=== PATIENT | female | born 1960 | race Caucasian/White ===

== ENCOUNTER 2021-01-15 08:39 | Outpatient (CLI) | payer OTHER, SELFPAY ==
--- NOTE | ~2021-01-15 | US_ITS ---
EXAMINATION: US venous doppler LE RT DATE: 01/15/2021 09:07 INDICATION: Right lower limb swelling. TECHNIQUE: Grayscale ultrasound images without and with compression and Doppler ultrasound images of the right lower extremity veins were obtained. COMPARISON: Ultrasound 11/25/2018 FINDINGS: The visualized portions of right common femoral vein, profunda (deep) femoral vein, femoral vein, pop liteal vein, peroneal veins, posterior tibial veins, and greater saphenous vein outflow are patent. A patent varicose vein is noted in the patient's area of concern. IMPRESSION: 1. No deep venous thrombosis. 2. Patent varicose vein in the patient's area of concern. Reviewed, dictated and finalized at location A.
== END 2021-01-15 08:40 ==
PROVIDERS: PCP Physician Assistant; Visit Provider Physician Assistant
DX: M79.89 Other specified soft tissue disorders (principal); R23.8 Other skin changes
CPT/HCPCS: 93971

== ENCOUNTER 2021-11-03 17:37 | Emergency (ER) | payer OTHER, SELFPAY ==
[2021-11-03 17:49] VITALS: BP 150/76; PULSE 94; RESP 18; TEMP 37.7; O2SAT 98
--- NOTE | 2021-11-03 17:53 | ED.ALLEREA ---
HPI - Allergic Reaction General Chief complaint: Allergic Reaction Stated complaint: poss allergice reaction Time Seen by Provider: 11/03/21 17:50 Source: patient, RN notes reviewed and old records reviewed History of Present Illness HPI narrative: 61 year old female who presents to [facility] with complaint of having possible allergic reaction to cashews. She states that he ate a handful of cashews last night when she was cleaning up the bingo hart. She reports that she immediately had a feeling of sinus drainage in the past of her throat, she reports that she did not have any difficulty swallowing or any respiratory distress. At about 0100 she vomited and she started getting this itching feelings in her hands and feet.She reports that she has been taking Benadryl with no relief in the itching, continues to not have any shortness of breath or any difficulty with swallowing with no rash noted. MD complaint: allergic reaction and other (hands and feet itch no rash) Onset (ago): hour(s) (about 10pm last night) Exposure: unknown Known history of allergy to: never allergy to anything before Symptoms: itching Severity: moderate Treatment prior to arrival: benadryl Previous Allergic Reaction History: none Related Data Home Medications Medication Instructions Recorded Confirmed irbesartan 75 mg PO DAILY 11/03/21 11/03/21 Allergies Allergy/AdvReac Type Severity Reaction Status Date / Time tree nut Allergy Itching Verified 11/03/21 17:53 Review of Systems Review of Systems: CONSTITUTIONAL: Denies fever, chills, or sweats. EYES: Denies visual changes, redness, or discharge. ENT: Denies rhinorrhea, congestion, sore throat, or otalgia. CARDIOVASCULAR: Denies chest pain, palpitations, or edema. RESPIRATORY: Denies cough or dyspnea. GASTROINTESTINAL: Denies abdominal pain, nausea, vomiting, or diarrhea. GENITOURINARY: Denies dysuria or hematuria. SKIN: No rash noted acute itching noted to hands and feet MUSCULOSKELETAL: Denies back pain, joint pain, or myalgia. NEUROLOGIC: Denies headache, numbness, or weakness. PSYCHIATRIC: Denies anxiety or depression. All systems reviewed & are unremarkable except as noted in HPI and below PMFSH Past Medical History Medical History (Updated 11/03/21 @ 18:17 by Dayana Quiñones NP) Hypertension UTI (urinary tract infection) Surgical History Surgical History (Updated 11/03/21 @ 18:07 by Dayana Quiñones NP) H/O tubal ligation History of hysterectomy History of varicose vein stripping 5 weeks ago to right lower leg Family History Family History (Updated 11/03/21 @ 18:09 by Dayana Quiñones NP) Father Heart disease Hypertension Cancer Mother Hypertension Diabetes mellitus Social History Social History (Updated 11/03/21 @ 18:07 by Dayana Quiñones NP) Smoking status: Former smoker Additional smoking assessment comments: Quit 1 year ago in December Alcohol intake: current Alcohol use details: social Substance use: never Living arrangements: with family Gender identity (if verbalized by the patient): Female Comments At time of signature, agree with nursing past medical, surgical, social and family history. There is no relevant family history pertinent to the presenting complaint Exam Narrative: GENERAL: Well-appearing, well-nourished, and in no acute distress. Anxious HEAD: Normocephalic, atraumatic. EYES: PERRLA and EOMI.no swelling around eyes ENT: Nares clear, no rhinorrhea or epistaxis. Mucous membranes moist. TMs normal with good light reflex throat pink with no lesions or exudates no tonsillar swelling no Ken angina denies any difficulty with swallowing NECK: Supple. No lymph adenopathy CHEST: Clear to auscultation. No respiratory distress. No tachypnea no wheezing noted on auscultation SAO2 98% on room air HEART: Regular rate and rhythm. No murmur heard. Normal peripheral pulses. ABDOMEN: Soft, nontender, nondistended, normal active bowel so
[2021-11-03] MEDS: methylPREDNISolone ACETATE 80 MG/ML VIAL IM (18:07)
== END 2021-11-03 18:27 | disposition home or self-care (01) ==
PROVIDERS: Emergency Provider Registered Nurse
DX: L29.9 Pruritus, unspecified (principal); T78.1XXA Other adverse food reactions, not elsewhere classified, initial encounter; Z87.891 Personal history of nicotine dependence; I10 Essential (primary) hypertension
CPT/HCPCS: 96372; 99213; G0463; J1040

== ENCOUNTER 2023-01-27 15:05 | Emergency (ER) | payer OTHER, SELFPAY ==
[2023-01-27 15:16] VITALS: BP 175/70; PULSE 88; RESP 16; TEMP 37.7; O2SAT 99
--- NOTE | 2023-01-27 15:28 | ED.EXTPRO ---
HPI - Extremity Problem General Chief complaint: Extremity Problem,Nontraumatic Stated complaint: Left Leg Pain Time Seen by Provider: 01/27/23 15:18 Source: patient Mode of arrival: ambulatory Limitations: no limitations History of Present Illness HPI Narrative: [place] is a 63-year-old female patient presenting to the clinic today with complaints of left lower leg pain. States she has she has a knotted area with some redness and swelling as well as swelling into her ankle and foot on the left side. Just noticed this yesterday. Denies any known injury or insect bite to the area. No history of cellulitis. No recent travel. Does not take blood thinners. History of varicose veins. Denies any fever, chills, headache, shortness of breath, chest pain, visual changes, or dizziness Related Data Home Medications Medication Instructions Recorded Confirmed irbesartan 75 mg tablet 75 mg PO DAILY 11/03/21 01/27/23 rosuvastatin 10 mg tablet 10 mg DAILY 01/27/23 01/27/23 Allergies Allergy/AdvReac Type Severity Reaction Status Date / Time tree nut Allergy Itching Verified 01/27/23 15:22 Review of Systems Review of Systems: Pertinent positives per HPI. Patient denies any fever, chills, rash, headache, visual changes, dizziness, cough, runny nose, sore throat, shortness of breath, chest pain, palpitations, nausea, vomiting, diarrhea, constipation, abdominal pain, or any urinary issues. [facility] [place] Past Medical History Medical History (Updated 01/27/23 @ 15:35 by Kang Goodwin APRN) Hypertension UTI (urinary tract infection) Surgical History Surgical History (Updated 11/03/21 @ 18:07 by Dayana Quiñones NP) H/O tubal ligation History of hysterectomy History of varicose vein stripping 5 weeks ago to right lower leg Family History Family History (Updated 11/03/21 @ 18:09 by Dayana Quiñones NP) Father Heart disease Hypertension Cancer Mother Hypertension Diabetes mellitus Social History Social History (Updated 11/03/21 @ 18:07 by Dayana Quiñones NP) Smoking status: Former smoker Additional smoking assessment comments: Quit 1 year ago in December Alcohol intake: current Alcohol use details: social Substance use: never Living arrangements: with family Gender identity (if verbalized by the patient): Female Comments At the time of my signature, I reviewed and agree with the nursing past medical, surgical, social, and family history. There is no relevant family history pertinent to the patient complaint. Exam Narrative: General: Well-developed, well nourished, in no apparent distress Head: Normocephalic, atraumatic. Cardio: Regular rate and rhythm, s1 and s2 normal, no murmur appreciated. Resp: Clear to auscultation bilaterally, no rhonchi, rales, wheezing or rubs. Musculoskeletal: No deformity, redness,mild swelling, and tenderness to palpation over the left lower posterior lateral leg with swelling in her left ankle and foot, grossly normal range of motion, muscle strength strong and equal, peripheral pulse strong, no edema, no cyanosis, normal gait and station Course Course Emergency Course: Portions of this record may have been created with voice recognition software. Level of Care: Express Care Visit Vital Signs Vital signs: Vital Signs Temperature 37.7 C H 01/27/23 15:16 Pulse Rate 88 01/27/23 15:16 Respiratory Rate 16 01/27/23 15:16 Blood Pressure 175/70 H 01/27/23 15:16 Pulse Oximetry 99 01/27/23 15:16 Oxygen Delivery Room Air 01/27/23 15:16 Temperature 37.7 C H 01/27/23 15:16 Pulse Rate 88 01/27/23 15:16 Respiratory Rate 16 01/27/23 15:16 Blood Pressure 175/70 H 01/27/23 15:16 Pulse Oximetry 99 01/27/23 15:16 Oxygen Delivery Room Air 01/27/23 15:16 Vital signs reviewed Transfer Transfered to: [place] Transportation: Other (Private car) Transfer rationale: Knotted with tenderness to the left lower leg w
== END 2023-01-27 15:36 | disposition short-term general hospital (02) ==
PROVIDERS: Emergency Provider Nurse Practitioner Family; PCP Nurse Practitioner Family
DX: M79.662 Pain in left lower leg (principal); M79.89 Other specified soft tissue disorders; I10 Essential (primary) hypertension; Z87.891 Personal history of nicotine dependence
CPT/HCPCS: 99212; G0463

== ENCOUNTER 2023-01-27 15:47 | Emergency (ER) | payer OTHER, SELFPAY ==
--- NOTE | ~2023-01-27 | US_ITS ---
EXAMINATION: US venous doppler [facility] DATE: 01/27/2023 18:31 INDICATION: lle pain and redness . TECHNIQUE: Grayscale images without and with compression and Doppler images of the left lower extremi ty veins were obtained. COMPARISON: None FINDINGS: The left common femoral vein, profunda (deep) femoral vein, femoral vein, popliteal vein, peroneal v ein, posterior tibial veins, gastrocnemius vein, and greater saphenous vein are patent. IMPRESSION: 1. Patent left lower extremity veins. No evidence of deep venous thrombosis. Reviewed, dictated and finalized at location K.
[2023-01-27 17:33] VITALS: BP 191/82; PULSE 79; RESP 16; TEMP 36.7; O2SAT 98
--- NOTE | 2023-01-27 19:20 | ED.LOWEXIN ---
HPI - Extremity Injury (Lower) General Chief Complaint: Extremity Injury, Lower Stated Complaint: L LEG REDNESS Time Seen by Provider: 01/27/23 18:38 History of Present Illness HPI Narrative: 63-year-old female with a history of hypertension reports for evaluation of an area of redness, warmth and tenderness to the posterior aspect of her left lower extremity x1 day. Patient states she went to urgent care today for evaluation and was told to come to the ED to rule out a DVT. She reports lower extremity swelling that is unchanged from baseline. Denies fever, body aches or chills, nausea, vomiting, diarrhea, known insect bite or injury. Related Data Home Medications Medication Instructions Recorded Confirmed irbesartan 75 mg tablet 75 mg PO DAILY 11/03/21 01/27/23 rosuvastatin 10 mg tablet 10 mg DAILY 01/27/23 01/27/23 Allergies Allergy/AdvReac Type Severity Reaction Status Date / Time tree nut Allergy Itching Verified 01/27/23 15:22 Review of Systems Review of Systems: CONSTITUTIONAL: Denies fever, chills EYES: Denies visual changes, redness, or discharge. ENT: Denies rhinorrhea, congestion, sore throat, or otalgia. CARDIOVASCULAR: Denies chest pain, palpitations, or edema. RESPIRATORY: Denies cough or dyspnea. GASTROINTESTINAL: Denies abdominal pain, nausea, vomiting, or diarrhea. GENITOURINARY: Denies dysuria or hematuria. SKIN: See HPI MUSCULOSKELETAL: Denies back pain, joint pain, or myalgia. NEUROLOGIC: Denies headache, numbness, dizziness, or weakness. PSYCHIATRIC: Denies anxiety or depression. [facility] Past Medical History Medical History Hypertension UTI (urinary tract infection) Surgical History Surgical History H/O tubal ligation History of hysterectomy History of varicose vein stripping 5 weeks ago to right lower leg Family History Family History Father Heart disease Hypertension Cancer Mother Hypertension Diabetes mellitus Social History Social History Smoking status: Former smoker Additional smoking assessment comments: Quit 1 year ago in December Alcohol intake: current Alcohol use details: social Substance use: never Living arrangements: with family Gender identity (if verbalized by the patient): Female Exam Narrative: GENERAL: Well-appearing, in no acute distress. HEAD: Normocephalic NECK: Supple. CHEST: No respiratory distress. Clear to auscultation, no adventitious breath sounds. HEART: Regular rate and rhythm. No murmur heard. Normal peripheral pulses. EXTREMITIES: Normal range of motion. No edema. DP pulses 2+ bilaterally. Sensation intact throughout. Patient moving all extremities spontaneously. SKIN: 2 cm area with indistinct margins of warmth, tenderness and erythema to the posterior aspect of the lower left extremity. No skin compromise, papules or pustules, drainage or central lesions. No areas of induration or fluctuation. NEURO: No focal deficits. Alert and oriented x3. Cranial nerves II through XII grossly intact. Ambulating without difficulty. PSYCH: Normal mood and affect. Course Vital Signs Vital signs: Vital Signs Temperature 98.1 F 01/27/23 17:33 Pulse Rate 79 01/27/23 17:33 Respiratory Rate 16 01/27/23 17:33 Blood Pressure 191/82 H 01/27/23 17:33 Pulse Oximetry 98 01/27/23 17:33 Temperature 98.1 F 01/27/23 17:33 Pulse Rate 77 01/27/23 19:40 Respiratory Rate 20 01/27/23 19:40 Blood Pressure 120/78 01/27/23 19:40 Pulse Oximetry 98 01/27/23 19:40 MDM - Extremity Injury (Lower) MDM Narrative Medical decision making narrative: 63-year-old female reports for evaluation of a 2 cm area of erythema, warmth and tenderness to the posterior aspect of her left lower extr
[2023-01-27 19:23] VITALS: BP 163/84; PULSE 79; RESP 18; O2SAT 98
[2023-01-27 19:40] VITALS: BP 120/78; PULSE 77; RESP 20; O2SAT 98
== END 2023-01-27 19:40 | disposition home or self-care (01) ==
PROVIDERS: Emergency Provider Physician Assistant; PCP Nurse Practitioner Family
DX: L03.116 Cellulitis of left lower limb (principal); I10 Essential (primary) hypertension; Z87.440 Personal history of urinary (tract) infections; Z87.891 Personal history of nicotine dependence; Z90.710 Acquired absence of both cervix and uterus
CPT/HCPCS: 93971; 99284

== ENCOUNTER 2023-03-24 17:25 | Emergency (ER) | payer OTHER, SELFPAY ==
--- NOTE | 2023-03-24 17:30 | ED.SKABFB ---
HPI - Skin/Abscess/Foreign Bdy General Chief complaint: Skin/Abscess/Foreign Body Stated complaint: irritation on nose Time Seen by Provider: 03/24/23 17:45 Source: patient and RN notes reviewed Mode of arrival: ambulatory Limitations: no limitations History of Present Illness HPI narrative: 63-year-old female presents with concern for several skin issues. She reports she has had a rash on her upper arms for several days that is very itchy. Reports she has had this similar rash before without a known cause that went away on its own. She reports this rash is not going away. In a separate complaint she reports a spot on her nose that she thought may be a cold sore so she started using Abreva she reports the area originally had blisters the blisters have gone away but now it new spot on the other side of her nose is popped up. She reports it is mildly tender to touch but otherwise is not painful. She denies swollen lips, swollen tongue, trouble breathing. MD complaint: rash Related Data Home Medications Medication Instructions Recorded Confirmed irbesartan 75 mg tablet 75 mg PO DAILY 11/03/21 03/24/23 rosuvastatin 10 mg tablet 10 mg DAILY 01/27/23 03/24/23 Allergies Allergy/AdvReac Type Severity Reaction Status Date / Time tree nut Allergy Itching Verified 03/24/23 17:33 Review of Systems Review of Systems: CONSTITUTIONAL: Denies malaise, chills, sweats, or fever. EYES: Denies redness or discharge. ENT: Denies rhinorrhea, congestion, swollen lips, swollen tongue CARDIOVASCULAR: Denies chest pain, palpitations, or edema. RESPIRATORY: Denies cough or dyspnea. GASTROINTESTINAL: Denies abdominal pain, nausea, vomiting SKIN: Reports itchy rash on her bilateral upper arms. Reports two lesions on her nose MUSCULOSKELETAL: Denies joint pain or myalgia. NEUROLOGIC: Denies headache. All systems reviewed & are unremarkable except as noted in HPI and below PMFSH Past Medical History Medical History Hypertension UTI (urinary tract infection) Surgical History Surgical History H/O tubal ligation History of hysterectomy History of varicose vein stripping 5 weeks ago to right lower leg Family History Family History Father Heart disease Hypertension Cancer Mother Hypertension Diabetes mellitus Social History Social History Smoking status: Former smoker Additional smoking assessment comments: Quit 1 year ago in December Alcohol intake: current Alcohol use details: social Substance use: never Living arrangements: with family Gender identity (if verbalized by the patient): Female Comments At time of signature, agree with nursing past medical, surgical, social and family history. There is no relevant family history pertinent to the presenting complaint Exam Narrative: GENERAL: Well-appearing, well-nourished, and in no acute distress. HEAD: Normocephalic, atraumatic. EYES: PERRLA, conjunctivae clear, and EOMI. ENT: Mucous membranes moist. Oropharynx without edema, erythema or lesions. NECK: Supple. No lymphadenopathy CHEST: Clear to auscultation. No respiratory distress. HEART: Regular rate and rhythm. SKIN: Warm, dry. Erythematous papular rash noted on bilateral upper arms consistent with contact dermatitis. Raised red area on the right side of the nose without any vesicles noted, slightly smaller raised area on the left nose without vesicles NEURO: Alert and oriented x3. PSYCH: Normal mood and affect Course Course Emergency Course: Patient is aware of diagnosis, understands and agrees to treatment plan. Anticipatory guidance given. Patient agrees to follow-up as directed and is aware of reasons to seek care at the emergency department. Portions of this record
[2023-03-24 17:34] VITALS: BP 180/65; PULSE 92; RESP 14; TEMP 37; O2SAT 99
== END 2023-03-24 18:00 | disposition home or self-care (01) ==
PROVIDERS: Emergency Provider Nurse Practitioner; PCP Nurse Practitioner Family
DX: L25.9 Unspecified contact dermatitis, unspecified cause (principal); L98.9 Disorder of the skin and subcutaneous tissue, unspecified; Z87.891 Personal history of nicotine dependence; I10 Essential (primary) hypertension
CPT/HCPCS: 99213; G0463

== ENCOUNTER 2023-04-17 17:19 | Observation (INO) | payer OTHER, SELFPAY ==
[2023-04-17] VITALS (29 sets, daily range): BP systolic 135–193; BP diastolic 64–99; PULSE 74–94; RESP 14–22; TEMP 36.4; O2SAT 94–100
--- NOTE | ~2023-04-17 | CT_ITS ---
EXAMINATION: CT cervical spine wo con DATE: 04/17/2023 19:53 INDICATION: left hand decreased steeler strength eval for stenosi TECHNIQUE: Computed tomography (CT) of the cervical spine was performed without intravenous contrast. Automated exposure control and iterative reconstruction technique were employed. The dose-length pro duct was 358.51 mGy-cm. COMPARISON: None. FINDINGS: Vertebral Body Alignment: Intact. Reversed lordosis, centered at C5 Craniocervical and atlantoaxial alignment: Moderate degenerative change. Alignment intact. Osseous structures/fracture: No evidence of a lytic or blastic process in the visualized spine. No e vidence of acute fracture. Fat density lipoma or hemangioma in the clivus. Cervical soft tissues: The paraspinal soft tissues planes are maintained. 5 mm nodules in the periphe ral right upper lobe. Degenerative changes: Degenerative changes, without severe neural foraminal or central canal narrowin g. IMPRESSION: No acute fracture or traumatic malalignment in the cervical spine. Right upper lobe pulmonary nodules. Reviewed, dictated and finalized at location K.
--- NOTE | ~2023-04-17 | CT_ITS ---
EXAMINATION: CT diagnostic chest w con DATE: 04/18/2023 16:59 INDICATION: Lung masses TECHNIQUE: Transaxial computed tomographic images of the chest were obtained after the administration of 75 cc of Omnipaque 350 intravenous contrast. The dose-length product (DLP) was 158.32 mGy-cm. Ite rative reconstruction was used. COMPARISON: None FINDINGS: There is a 2.7 x 1.4 cm spiculated nodule of the right upper lobe. There is a smaller 4 mm nodule in the right lung apex (image 20). There is a 1.3 x 0.9 cm nodule of the left upper lobe. Ther e is a 6 mm nodule in the left lower lobe (image 59). There is a 1.7 x 1.3 cm nodule of the right low er lobe. There is mild right hilar lymphadenopathy. The heart size is normal. No pleural effusion or pneumothorax. There is moderate thoracic spondylosis. IMPRESSION: 1. Multiple lung nodules as described above, consistent with primary bronchogenic carcinoma with sate llite lesions or metastatic disease. CT-guided biopsy is recommended. 2. Right hilar lymphadenopathy, likely metastatic disease. Reviewed, dictated and finalized at location F. IMPRESSION: 1. Multiple lung nodules as described above, consistent with primary bronchogen ic carcinoma with satellite lesions or metastatic disease. CT-guided biopsy is recommended. 2. Right hilar lymphadenopathy, likely metastatic disease.
--- NOTE | ~2023-04-17 | XR_ITS ---
EXAMINATION: XR chest 1V portable DATE: 04/23/2023 17:53 INDICATION: Status post percutaneous lung biopsy TECHNIQUE: frontal view of the chest was obtained. COMPARISON: Chest radiograph dated 04/23/2023 at 3:54 PM FINDINGS: Again seen is the biopsied right upper lobe nodule which is concerning for primary bronchogenic carci noma. Additional more subtle small nodular opacity projecting over the left midlung zone. Mild streak y atelectasis at the right lung base. No pulmonary edema, pleural effusion or pneumothorax. Heart siz e is normal. IMPRESSION: 1. No pneumothorax or pleural effusion post percutaneous biopsy of a right upper lobe nodule which is suspicious for primary bronchogenic carcinoma. Reviewed, dictated and finalized at location A. IMPRESSION: 1. No pneumothorax or pleural effusion post percutaneous biopsy of a right uppe r lobe nodule which is suspicious for primary bronchogenic carcinoma.
--- NOTE | ~2023-04-17 | MR_ITS ---
EXAMINATION: MR brain/brain stem wo/w con DATE: 04/23/2023 13:56 INDICATION: Brain mass. TECHNIQUE: Magnetic resonance imaging (MRI) of the brain and brainstem was performed without and with 13 mL MultiHance intravenous contrast. COMPARISON: Head CT 04/17/2023 FINDINGS: There is a 15 mm rim-enhancing mass in posterior right frontal lobe. There is a 12 mm enhan cing mass in right frontoparietal region. There is vasogenic edema around these masses. There is 5 mm leftward midline shift in this area. There is no acute ischemic infarct or intracranial hemorrhage. The ventricles are normal in size. The paranasal sinuses are clear. The mastoid air cells are normal. The orbits are normal. IMPRESSION: 1. Masses in the right frontal lobe and right frontoparietal region, consistent with metastatic disea se. Reviewed, dictated and finalized at location A. IMPRESSION: 1. Masses in the right frontal lobe and right frontoparietal region, consistent with metastatic disease.
--- NOTE | ~2023-04-17 | CT_ITS ---
EXAMINATION: CT biopsy lung w/imaging DATE: 04/23/2023 14:55 INDICATION: Right lung nodule. TECHNIQUE: The procedure including the risks, benefits, and alternatives and possibility of chest tub e placement were discussed with the patient. Risks discussed included infection, hemorrhage, approxim ately 1/3 risk of pneumothorax, approximately 1/10 risk of pneumothorax severe enough to warrant ches t tube placement, and rarely . The patient understood the risks and agreed to proceed. The patie nt was placed prone. The skin overlying the right chest was prepped and draped in sterile fashion. Anesthetic was administered with 1% lidocaine subcutaneously. A 19 gauge outer needle was advanced u nder CT guidance to the lesion of interest. A 20 gauge core biopsy needle was then used to obtain 3 c ore biopsy specimens. The needle was removed and the entry site was cleaned and dressed. The mA was a djusted according to patient size. Iterative reconstruction technique was employed. The dose-length p roduct was 297.28 mGy-cm. There were no immediate complications. FINDINGS: CT images demonstrate the outer needle tip adjacent to an 18 mm nodule in right lung upper lobe. IMPRESSION: 1. CT-guided core needle biopsy of an 18 mm nodule in right lung upper lobe. Reviewed, dictated and finalized at location A.
--- NOTE | ~2023-04-17 | XR_ITS ---
EXAMINATION: XR chest 1V portable INDICATION: Right lung nodule status post percutaneous biopsy TECHNIQUE: Portable AP chest at 1554 hours COMPARISON: 1454 hours FINDINGS: A right upper lobe nodule is again seen. No pleural effusion or pneumothorax. The cardiomed iastinal silhouette is normal. IMPRESSION: 1. Unchanged right upper lobe nodule suspicious for primary bronchogenic carcinoma. No pneumothorax. Reviewed, dictated and finalized at location A. IMPRESSION: 1. Unchanged right upper lobe nodule suspicious for primary bronchogenic carcin joseph. No pneumothorax.
--- NOTE | ~2023-04-17 | XR_ITS ---
EXAMINATION: XR chest 1V portable Exam Date/Time: 04/17/2023 20:25 CDT HISTORY: cough AND RASH TO B/L ARMS X 2 WEEKS Comparison: The spine, same date. RESULT: Lines, tubes, and devices: None. Lungs and pleura: No focal consolidation. Minimal bibasilar scar/atelectasis. Nodular, peripheral op acities in the right upper lung, as seen in the prior CT C-spine. Slightly more inferiorly is at appr oximately 13 mm spiculated appearing opacity in the right upper lung. Cardiomediastinal silhouette: Stable. Other: No acute osseous or upper abdominal finding. IMPRESSION: 13 mm spiculated appearing right upper lobe nodule, with possible adjacent satellite nodules concerni ng for neoplastic disease. Consider CT of the chest with contrast for further evaluation. Reviewed, dictated and finalized at location K. IMPRESSION: 13 mm spiculated appearing right upper lobe nodule, with possible adjacent sate llite nodules concerning for neoplastic disease. Consider CT of the chest with contrast for further evaluation.
--- NOTE | ~2023-04-17 | CT_ITS ---
EXAMINATION: CT brain wo con DATE: 04/17/2023 19:53 INDICATION: left hand weakness . TECHNIQUE: Computed tomography (CT) of the head was performed without intravenous contrast. The mA wa s adjusted according to patient size. Iterative reconstruction technique was employed. The dose-lengt h product was 605.33 mGy-cm. COMPARISON: None. FINDINGS: No acute intracranial hemorrhage or extra-axial fluid collection. Two right posterior frontal lobe masses, with central hypodensity measuring up to 2.1 cm, with severe surrounding vasogenic edema and effacement of adjacent sulci. Mild eoals-fs-[id number] midline shift of 3 mm. Minimal/early right uncal herniation. No acute ischemic infarct. Unremarkable dural venous sinus attenuation. No acute osseous abnormality. The aerated spaces are clear. IMPRESSION: Two posterior right frontal lobe masses measuring up to 2.1 cm, with considerable surrounding vasogen ic edema, moderate local mass effect, and mild subfalcine herniation. These lesions most likely repre sent metastatic disease, noting that infection, demyelinating disease, and other entities could appea r similarly. Recommend MRI of the brain without and with contrast for further evaluation. Reviewed, dictated and finalized at location K. IMPRESSION: Two posterior right frontal lobe masses measuring up to 2.1 cm, with considerab le surrounding vasogenic edema, moderate local mass effect, and mild subfalcine herniation. These lesions most likely represent metastatic disease, noting marybeth t infection, demyelinating disease, and other entities could appear similarly. Recommend MRI of the brain without and with contrast for further evaluation.
--- NOTE | ~2023-04-17 | XR_ITS ---
EXAMINATION: XR chest 1V DATE: 04/23/2023 14:57 INDICATION: Right lung nodule status post percutaneous biopsy. TECHNIQUE: A single frontal view of the chest was obtained. COMPARISON: Chest CT 04/18/2023 FINDINGS: There is a nodule in right lung upper lobe. No pleural effusion or pneumothorax. The heart size is normal. IMPRESSION: 1. Nodule in right lung upper lobe suspicious for primary bronchogenic carcinoma. Reviewed, dictated and finalized at location A. IMPRESSION: 1. Nodule in right lung upper lobe suspicious for primary bronchogenic carcinom a.
--- NOTE | 2023-04-17 19:36 | ECG_ITS ---
Measurements Intervals [place] Rate: 75 P: 55 VA: 144 QRS: 16 QRSD: 97 T: 43 QT: 373 QTc: 417 Interpretive Statements SINUS RHYTHM NORMAL ELECTROCARDIOGRAM NO PREVIOUS ECG AVAILABLE FOR COMPARISON Electronically Signed On 04-18-2023 7:26:05 CDT by Richy Monreal M.D.
[2023-04-17] MEDS: methylPREDNISolone SOD SUCC 125 MG VIAL IV PUSH (20:02)
[2023-04-17] MEDS: FAMOTIDINE 20 MG/2 ML VIAL IV PUSH (20:02)
[2023-04-17 20:11] LABS: Basophils Percent Auto 0.6 % (0.2-1.2); Eosinophils Absolute Auto 0.1 K/mm3 (0-0.3); Eosinophils Percent Auto 1.4 % (0-4.4); Hematocrit 38.8 % (37.0-47.0); Hemoglobin 12.6 g/dL (12.0-15.0); Immature Granulocyte Absolute 0.02 K/mm3 (0.00-0.031); Immature Granulocyte Percent A 0.3 % (0-0.5); Lymphocytes Absolute Auto 2.66 K/mm3 (0.9-3.2); Lymphocytes Percent Auto 37.1 % (18.3-44.2); Mean Corpuscular HGB Conc 32.5 g/dl (32-36); Mean Corpuscular Hemoglobin 29.9 pg (26-34); Mean Corpuscular Volume 92.2 fl (80-100); Mean Platelet Volume 10.4 fl (7.4-10.4); Monocytes Absolute Auto 0.4 K/mm3 (0.1-0.6); Monocytes Percent Auto 5.2 % (2.6-8.5); Neutrophils Percent Auto 55.4 % (45.5-73.1); Platelet Count Result 246 k/mm3 (150-375); Red Blood Count 4.21 M/mm3 (4.2-5.4); Red Cell Distribution Width 13.9 % (11.5-14.5); White Blood Count 7.2 K/mm3 (4.5-10.0)
[2023-04-17 20:21] LABS: Prothrombin Time 13.7 Seconds (11.1-14.7)
[2023-04-17 20:22] LABS: Alanine Aminotransferase 24 U/L (6-35); Albumin Level 4.3 g/dL (3.5-5.1); Alkaline Phosphatase 96 U/L (38-126); Anion Gap 7 mmol/L (8-16); Aspartate Amino Transferase 24 U/L (14-36); Bilirubin,Total 0.3 mg/dL (0.2-1.3); Blood Urea Nitrogen 9 mg/dL (7-17); CRP 0.6 mg/dL (<1.0); Calcium 9.4 mg/dL (8.4-10.2); Carbon Dioxide 28 mmol/L (22-30); Chloride 105 mmol/L (98-107); Estimated CRCL calculation 81 ml/min; Estimated Glomerular Filt Rate > 60; Glucose 101 mg/dL (65-110); Partial Thromboplastin Time 27.4 SECONDS (22.3-36.8); Sodium 140 mmol/L (137-145)
[2023-04-17 21:01] LABS: Appearance Urine Clear (Clear); Bacteria Urine None Seen /hpf; Bilirubin Urine Negative (Negative); Blood Urine Negative (Negative); Color Urine Yellow (Yellow); Glucose Urine UA Negative (Negative); Ketones Urine Negative (Negative); Leukocyte Esterase Ur 2+ LEU/UL (Negative); Nitrate Urine Negative (Negative); Non Pathogenic Casts 0-2; Protein Urine Negative (Negative); RBC Urine 0-2 /hpf (0-2); Specific Grav Ur 1.005 (1.001-1.035); Squamous Epithelial Cell Urine Occasional /hpf (Few); Urobilinogen Urine 0.2 mg/dL (<2.0)
[2023-04-17 21:04] LABS: Add Urine Microscopic? YES
[2023-04-17 21:24] LABS: Erythrocyte Sedimentation Rate 46 mm/hr (0-20)
--- NOTE | 2023-04-17 21:47 | ED.GENADULT ---
HPI - General Adult General Chief complaint: Unspecified <Franklin Floyd MD - Last Filed: 04/18/23 06:53> Stated complaint: left hand cramping and rash to bilateral arms <Franklin Floyd MD - Last Filed: 04/18/23 06:53> Time Seen by Provider: 04/17/23 19:14 <Franklin Floyd MD - Last Filed: 04/18/23 06:53> History of Present Illness HPI narrative: The patient is a 63-year-old female who presents the emergency department with chief complaint of left hand weakness and rash. 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 <Franklin Floyd MD - Last Filed: 04/18/23 06:53> Related Data Home medications: Home Medications Medication Instructions Recorded Confirmed irbesartan 75 mg tablet 75 mg PO DAILY 11/03/21 03/24/23 rosuvastatin 10 mg tablet 10 mg DAILY 01/27/23 03/24/23 <Franklin Floyd MD - Last Filed: 04/18/23 06:53> Allergies/adverse reactions: Allergies Allergy/AdvReac Type Severity Reaction Status Date / Time No Known Allergies Allergy Verified 04/17/23 17:21 <Franklin Floyd MD - Last Filed: 04/18/23 06:53> Review of Systems Review of Systems: A 10 system review of systems was completed on the patient and is negative except for what is stated in the HPI. Nursing and ancillary documentation was reviewed. <Franklin Floyd MD - Last Filed: 04/18/23 06:53> PMFSH Past Medical History Medical History: Medical History Hypertension UTI (urinary tract infection) <Franklin Floyd MD - Last Filed: 04/18/23 06:53> Surgical History Surgical History: Surgical History H/O tubal ligation History of hysterectomy History of varicose vein stripping 5 weeks ago to right lower leg <Franklin Floyd MD - Last Filed: 04/18/23 06:53> Family History Family History: Family History Father Heart disease Hypertension Cancer Mother Hypertension Diabetes mellitus <Franklin Floyd MD - Last Filed: 04/18/23 06:53> Social History Social History: Social History Smoking status: Former smoker Additional smoking assessment comments: Quit 1 year ago in December Alcohol intake: current Alcohol use details: social Substance use: never Living arrangements: with family Gender identity (if verbalized by the patient): Female <Franklin Floyd MD - Last Filed: 04/18/23 06:53> Exam Narrative: GENERAL: Well-appearing, well-nourished, and in no acute distress. HEAD: Normocephalic, atraumatic. EYES: PERRLA and EOMI. ENT: Nares clear, no rhinorrhea or epistaxis. Mucous membranes moist. NECK: Supple. CHEST: Clear to auscultation. No respiratory distress. HEART: Regular rate and rhythm. No murmur heard. Normal peripheral pulses. ABDOMEN: Soft, nontender, nondistended, normal active bowel sounds. EXTREMITIES: Normal range of motion there is decreased strength in the left upper extremity in the hand particularly the thumb and index finger. No edema. SKIN: Warm, dry, there is an erythematous rash present to bilateral upper extremities there is no urticaria, no vesicles. NEURO: No focal deficits except for weakness in the index finger and left thumb. Alert and oriented x3. PSYCH: Normal mood and affect. <Franklin Floyd MD - Last Filed: 04/18/23 06:53> Course Vital Signs Vital signs: Vital
[2023-04-17] MEDS: levETIRAcetam 500MG/NACL 100ML 500 MG/100 ML BAG 400 MG IVPB (23:24)
[2023-04-18] VITALS (33 sets, daily range): BP systolic 103–146; BP diastolic 55–71; PULSE 63–88; RESP 15–27; TEMP 36.9; O2SAT 92–100; BMI 28.3
--- NOTE | 2023-04-18 01:56 | PC.NURSE ---
At this time, I called the [facility] transfer center for an update on the bed placement. Was told that it will most likely not happen on this shift and will be based off of discharges
[2023-04-18] MEDS: levETIRAcetam 500MG/NACL 100ML 500 MG/100 ML BAG 400 MG IVPB ×2 (09:15→21:55)
--- NOTE | 2023-04-18 09:25 | PC.NURSE ---
daily meds ordered from pharmacy. family at bedside.
--- NOTE | 2023-04-18 10:18 | PC.NURSE ---
1020 called bed placement for update, no discharges no beds at this time will call when they get room.
[2023-04-18] MEDS: ROSUVASTATIN 10 MG TABLET PO (10:32)
[2023-04-18] MEDS: IRBESARTAN 75 MG TABLET PO (10:32)
--- NOTE | 2023-04-18 18:17 | ADMGEN ---
This patient, Sherley Ridley, was admitted to Medical Room [facility]- at 1815. Patient/family oriented to hospital policies and general routines including ID bracelet, bed and alarms, visiting hours, pain management, procedures, bathroom and other care routines, personal items, smoking policy, room service/diet, and visiting hours. Information on how to activate the Rapid Response Team has been discussed. Patient/Family are encouraged to report perceived risks to care and to ask questions if they do not understand what they are told or what they should do.
--- NOTE | 2023-04-18 20:10 | PM.IMHP ---
H&P: HPI History of Present Illness Date/Time: 04/18/23 20:10 Chief Complaint: Left hand cramping and rash to bilateral arms. Narrative: This is a 63-year-old female patient who came to the emergency room on the . She complained of left hand weakness she stated that 2 of her fingers were not working the way they should. 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 She has not had any other focal weakness or any headaches. She also noticed that she was having a rash to her upper extremities that have been there for a few days. The rash appeared prior to the weakness. Chest CT was read as the following?Multiple lung nodules as described above, consistent with primary bronchogenic carcinoma with satellite lesions or metastatic disease. CT-guided biopsy is recommended. 2. Right hilar lymphadenopathy, likely metastatic disease. The CT was obtained after chest x-ray that was read as13 mm spiculated appearing right upper lobe nodule, with possible adjacent satellite nodules concerning for neoplastic disease. Consider CT of the chest with contrast for further evaluation. Cervical spine CT read asNo acute fracture or traumatic malalignment in the cervical spine. Right upper lobe pulmonary nodules. Head CT read as two posterior right frontal lobe masses measuring up to 2.1 cm, with considerable surrounding vasogenic edema, moderate local mass effect, and mild subfalcine herniation. These lesions most likely represent metastatic disease, noting that infection, demyelinating disease, and other entities could appear similarly. Recommend MRI of the brain without and with contrast for further evaluation. The ER doctor spoke with outside facility for transfer. The patient is still awaiting a bed. The patient had been in ER for nearly 24 hours. The family was requesting for the patient to have a more comfortable bed. As per ER note CT head showed evidence of a large intracranial mass with vasogenic edema Case was discussed with our local neurosurgery group who recommended either transferring patient to [place] or [facility] Case was discussed with neurosurgery on-call resident and the patient will be excepted by Dr. Oropeza patient was loaded with Keppra and started on 500 mg of Keppra twice daily until a bed is available Patient did receive IV steroids as she was having the pruritic rash to her upper extremities. Chest x-ray did show a nodule that was spiculated this may be primary or another metastatic lesion. ?<Franklin Floyd MD - Last Filed: 04/18/23 06:53> ? ? ? Differential diagnosis includes intracerebral hemorrhage, mass, peripheral nerve related issue CT head showed evidence of a large intracranial mass with vasogenic edema Case was discussed with our local neurosurgery group who recommended either transferring patient to [place] or [facility] Case was discussed with neurosurgery on-call resident and the patient will be excepted by Dr. Oropeza patient was loaded with Keppra and started on 500 mg of Keppra twice daily until a bed is available Patient did receive IV steroids as she was having the pruritic rash to her upper extremities. Chest x-ray did show a nodule that was spiculated this may be primary or another metastatic lesion. Patient is unable to go to [facility] at this time, .? Patient to be admitted to the hospitalist until bed availability.? Keppra 500 twice daily to be continued.? Currently patient denying any pain, nausea, vomiting or headache. CT scan of the chest with IV contrast showed multiple lung nodules consistent with primary bronchogenic carcinoma, right hilar lymphadenopathy like metastatic disease. The patient is being admitted to observation status on the date of service of 04/18/2023. Review of Systems Review of Systems: All systems reviewed & are unremarkable except as noted in HPI and below Constitutional: Constitutional: Reports as per HPI and Reports no additional constitutional complaints Eyes: Eyes: R
[2023-04-19 04:38] LABS: Basophils Percent Auto 0.3 % (0.2-1.2); Eosinophils Absolute Auto 0.1 K/mm3 (0-0.3); Hematocrit 35.1 % (37.0-47.0); Hemoglobin 11.5 g/dL (12.0-15.0); Immature Granulocyte Absolute 0.02 K/mm3 (0.00-0.031); Immature Granulocyte Percent A 0.2 % (0-0.5); Lymphocytes Absolute Auto 3.85 K/mm3 (0.9-3.2); Lymphocytes Percent Auto 38.9 % (18.3-44.2); Mean Corpuscular HGB Conc 32.8 g/dl (32-36); Mean Corpuscular Hemoglobin 30.3 pg (26-34); Mean Corpuscular Volume 92.6 fl (80-100); Mean Platelet Volume 10.4 fl (7.4-10.4); Monocytes Absolute Auto 0.6 K/mm3 (0.1-0.6); Monocytes Percent Auto 6.1 % (2.6-8.5); Neutrophils Absolute Auto 5.3 K/mm3 (1.3-6.7); Neutrophils Percent Auto 53.5 % (45.5-73.1); Platelet Count Result 236 k/mm3 (150-375); Red Blood Count 3.79 M/mm3 (4.2-5.4); Red Cell Distribution Width 13.9 % (11.5-14.5); White Blood Count 9.9 K/mm3 (4.5-10.0)
[2023-04-19 04:53] LABS: Alanine Aminotransferase 22 U/L (6-35); Albumin Level 3.8 g/dL (3.5-5.1); Alkaline Phosphatase 72 U/L (38-126); Anion Gap 7 mmol/L (8-16); Aspartate Amino Transferase 22 U/L (14-36); Bilirubin,Total 0.3 mg/dL (0.2-1.3); Blood Urea Nitrogen 13 mg/dL (7-17); Calcium 8.8 mg/dL (8.4-10.2); Carbon Dioxide 25 mmol/L (22-30); Chloride 106 mmol/L (98-107); Estimated CRCL calculation 81 ml/min; Estimated Glomerular Filt Rate > 60; Glucose 109 mg/dL (65-110); Potassium 3.9 mmol/L (3.4-5.0); Sodium 138 mmol/L (137-145)
[2023-04-19 05:03] VITALS: BP 143/77; PULSE 71; RESP 16; TEMP 36.8; O2SAT 94
[2023-04-19] MEDS: methylPREDNISolone SOD SUCC 125 MG VIAL 60 MG IV PUSH ×4 (06:16→23:07)
[2023-04-19] MEDS: ROSUVASTATIN 10 MG TABLET BY MOUTH (08:27)
[2023-04-19] MEDS: levETIRAcetam 500MG/NACL 100ML 500 MG/100 ML BAG 400 MG IVPB ×2 (08:28→20:25)
[2023-04-19] MEDS: IRBESARTAN 75 MG TABLET PO (08:28)
--- NOTE | 2023-04-19 09:51 | PM.IMPN ---
Progress Note: A&P Assessment and Plan (1) Mass of brain: Code(s): G93.89 - Other specified disorders of brain Status: Acute Assessment and Plan: The patient is awaiting a bed at [facility]. She is only admitted here for observation until she receives a bed at [facility]. CT of the head Two posterior right frontal lobe masses measuring up to 2.1 cm, with considerable surrounding vasogenic edema, moderate local mass effect, and mild subfalcine herniation. Radiologist considers these lesions most likely represent metastatic disease, noting that infection, demyelinating disease, and other entities could appear similarly. Radiologist recommends to recommend MRI of the brain without and with contrast for further evaluation. The patient was started on Keppra and Solu-Medrol. Patient is a waiting list to be transferred to [facility] and [facility] Now patient has no new neuro deficit consult neurologist for evaluation and treatment (2) Pulmonary neoplasm: Code(s): D49.1 - Neoplasm of unspecified behavior of respiratory system Status: Acute Assessment and Plan: CT of the chest. Multiple lung nodules as described above, consistent with primary bronchogenic carcinoma with satellite lesions or metastatic disease. CT-guided biopsy is recommended. 2. Right hilar lymphadenopathy, likely metastatic disease. Patient awaiting transfer to [facility] and [facility]. The patient is currently on room air. I will not involve specialist in [place] now (3) Hyperlipidemia: Code(s): E78.5 - Hyperlipidemia, unspecified Status: Acute Assessment and Plan: Continue with rosuvastatin (4) Hypertension: Code(s): I10 - Essential (primary) hypertension Status: Acute Assessment and Plan: Continue with irbesartan Subjective Date/time seen: 04/19/23 09:51 Interval history: Patient has no new issue events over the night, afebrile, hemodynamically stable, patient still has weakness of right thumb, the weakness started about a week ago. Patient denies headache, vision change, new focal weakness nausea vomiting Exam Narrative: GENERAL: Pleasant, in no acute distress. Well-nourished. - EYES: EOMI. Anicteric. - HENT: Moist mucous membranes. - LUNGS: Clear to auscultation bilaterally, no wheezing, rhonchi, or rales. - CARDIOVASCULAR: Regular rate and rhythm. No murmur. No JVD. - ABDOMEN: Soft, non-tender and non-distended. No palpable masses. - EXTREMITIES: No edema. Peripheral pulses 2+. Non-tender. - NEUROLOGIC: No focal neurological deficits. CN II-XII grossly intact. - PSYCHIATRIC: Awake, Alert and oriented x 3. Appropriate mood and affect. Weakness of right thumb - SKIN: No rashes or lesions. Warm. - LYMPH: No cervical lymphadenopathy. Objective Data Vital Signs Vital Signs: Vital Signs - 24 hr 04/18/23 18:15 04/18/23 10:01 04/18/23 10:31 Temperature Pulse Rate 77 82 Respiratory Rate 16 24 H Blood Pressure 138/68 103/63 Pulse Oximetry Oxygen Delivery 04/18/23 11:01 04/18/23 14:01 04/18/23 18:28 Temperature Pulse Rate Respiratory Rate Blood Pressure 111/62 124/55 L Pulse Oximetry Oxygen Delivery Room Air 04/18/23 19:58 04/19/23 05:03 04/19/23 09:00 Temperature 98.5 F 98.3 F Pulse Rate 81 71 Respiratory Rate 20 16 Blood Pressure 146/71 H 143/77 H Pulse Oximetry 100 94 Oxygen Delivery Room Air Intake/Output Intake/Output: Intake & Output 04/16/23 04/17/23 04/18/23 04/19/23 23:59 23:59 23:59 23:59 Intake Total 750 200 Balance 750 200 Meds/Results Medications: Active Medications Generic Name Dose Route Start Last Admin Trade Name Freq PRN Reason Stop Dose Admin Acetaminophen 650 mg 04/18/23 16:48 Acetaminophen 325 Mg Tablet PO Q4H PRN Mild Pain (1-3) or Fever Levetiracetam 500 mg in 100 mls @ 400 mls/hr 04/18/23 09:00 04/19/23 08:45 Keppra Iv IVPB I
--- NOTE | 2023-04-19 10:41 | PC.NURSE ---
This nurse was told by charge nurse, that pt had a consult in for Dr. Mendiola. Charge nurse stated that Dr. Mendiola is not going to see the pt due to the fact that pt is pending transfer to [facility] to see neurosurgeon. Charge nurse wanted this nurse to notify Dr. Sheth due to that provider putting order in. This nurse called Dr. Sheth at [address] Sheth stated that Dr. Mendiola still needs to see the patient. This nurse stated again that pt is pending transfer to [facility] and Dr. Mendiola was not going to see pt due to pt needing neurosurgeon. At 1044 this nurse was notified that just called and stated will call Dr. Sheth herself. Charge nurse made aware.
--- NOTE | 2023-04-19 12:03 | WPDNEURCNPN ---
Assessment and Plan Assessment and plan (1) Left-sided weakness: Code(s): R53.1 - Weakness Status: Acute (2) Mass of brain: Code(s): G93.89 - Other specified disorders of brain Status: Acute (3) Pulmonary neoplasm: Code(s): D49.1 - Neoplasm of unspecified behavior of respiratory system Status: Acute Plan Ms. Ridley is a 63 year old female presenting due to left sided weakness. She was found to have R frontal masses with surrounding vasogenic edema concerning for metastatic disease originating from the lungs. Patient has been accepted by Neurosurgery service at [facility] and is waiting on a bed currently. Patient denies any headaches. She has not had any seizures. - Agree with prophylactic Keppra 500mg BID - MRI brain with and without contrast - Decadron can be used for edema -- please discuss dosing and frequency with accepting physician Consult date: 04/19/23 Reason for consult: L sided weakness HPI: Sherley Ridley is a 63 year old female with a history of hypertension, hyperlipidemia presenting for evaluation of left sided weakness. Patient presented after noting weakness in the left hand, dragging the left foot, left facial droop, and speech changes. She presented to [place] ED where CT head revealed two posterior right frontal lobe masses measuring up to 2.1 cm with considerable surrounding vasogenic edema, moderate local mass effect, and mild subfalcine herniation, suggestive of metastatic disease. CT chest showed multiple nodules, concerning for primary bronchogenic carcinoma. Our Neurosurgery providers were consulted from the ER and they recommended transfer to [facility] or [facility]. Patient has been accepted at [facility] but is waiting on a bed. Per recommendation of the accepting physician, she was started on Keppra 500mg BID. MRI brain with and without contrast was recommended as well. She has been started on scheduled solumedrol. Patient denies any headache, vision changes, seizures. She continues to have weakness in the left upper extremity but feels that her speech is back to baseline. Review of Systems Constitutional: Constitutional: Denies chills and Denies fever(s) Eyes: Eyes: Denies diplopia and Denies loss of vision ENT: Denies dizziness, Denies hearing loss and Denies tinnitus Cardiovascular: Cardiovascular: Denies chest pain, Denies syncope and Denies dyspnea Respiratory: Respiratory: Denies cough, Denies dyspnea and Denies wheezing Gastrointestinal: Gastrointestinal: Denies abdominal pain, Denies change in bowel habits and Denies vomiting Genitourinary: Genitourinary: Denies urinary incontinence Musculoskeletal: Musculoskeletal: Denies arthralgias and Denies joint swelling Integumentary/Breasts: Skin/Breast: Denies new lesions and Denies rash Neurologic: Reports as per HPI, Denies dizziness, Denies syncope and Denies loss of vision Psychiatric: Psychiatric: Denies anxiety and Denies depression Endocrine: Endocrine: Denies cold intolerance and Denies heat intolerance Hematologic/Lymphatic: Hematologic/Lymphatic: Denies easy bleeding and Denies easy bruising Allergic/Immunologic: Allergic/Immunologic: Denies no additional allergic/immunologic complaints and Denies wheezing PMFSH Past Medical History Medical History Hyperlipidemia Hypertension UTI (urinary tract infection) Surgical History Surgical History H/O tubal ligation History of hysterectomy History of varicose vein stripping 5 weeks ago to right lower leg Family History Family History Father Heart disease Hypertension Cancer Mother Hypertension Diabetes mellitus Social History Social History Social History: The patient is and works for the [id number] outdoors. She has 3 children
[2023-04-19 14:00] VITALS: BP 157/75; PULSE 76; RESP 18; TEMP 36.8; O2SAT 100
[2023-04-19 21:39] VITALS: BP 155/73; PULSE 70; RESP 18; TEMP 36.3; O2SAT 96
[2023-04-20 06:00] VITALS: BP 162/73; PULSE 89; RESP 20; TEMP 36.4; O2SAT 98
[2023-04-20] MEDS: methylPREDNISolone SOD SUCC 125 MG VIAL 60 MG IV PUSH ×4 (06:30→23:12)
[2023-04-20] MEDS: IRBESARTAN 75 MG TABLET PO (08:19)
[2023-04-20] MEDS: ROSUVASTATIN 10 MG TABLET BY MOUTH (08:20)
[2023-04-20] MEDS: levETIRAcetam 500MG/NACL 100ML 500 MG/100 ML BAG 400 MG IVPB (08:20)
[2023-04-20] MEDS: levETIRAcetam 500 MG TABLET PO ×2 (11:25→20:19)
--- NOTE | 2023-04-20 12:31 | PM.IMPN ---
Progress Note: A&P Assessment and Plan (1) Mass of brain: Code(s): G93.89 - Other specified disorders of brain Status: Acute (2) Pulmonary neoplasm: Code(s): D49.1 - Neoplasm of unspecified behavior of respiratory system Status: Acute (3) Hyperlipidemia: Code(s): E78.5 - Hyperlipidemia, unspecified Status: Acute (4) Hypertension: Code(s): I10 - Essential (primary) hypertension Status: Acute (5) Left-sided weakness: Code(s): R53.1 - Weakness Status: Acute Plan (1) Mass of brain: ?Code(s): G93.89 - Other specified disorders of brain ?Status:?Acute ?Assessment and Plan: The patient is awaiting a bed at [facility].? She is only admitted here for observation until she receives a bed at [facility]. CT of the head Two posterior right frontal lobe masses measuring up to 2.1 cm, with considerable surrounding vasogenic edema, moderate local mass effect, and mild subfalcine herniation. Radiologist considers these lesions most likely represent metastatic disease, noting that infection, demyelinating disease, and other entities could appear similarly.? Radiologist recommends to recommend MRI of the brain without and with contrast for further evaluation. The patient was started on Keppra and Solu-Medrol.? Patient is a waiting list to be transferred to [facility] and [facility] Now patient has no new neuro deficit consult neurologist and neurosurgeon for evaluation and treatment change to keppra 500 mg q12h po (2) Pulmonary neoplasm: ?Code(s): D49.1 - Neoplasm of unspecified behavior of respiratory system ?Status:?Acute ?Assessment and Plan: CT of the chest. Multiple lung nodules as described above, consistent with primary bronchogenic carcinoma with satellite lesions or metastatic disease. CT-guided biopsy is recommended. 2. Right hilar lymphadenopathy, likely metastatic disease. Patient awaiting transfer to [facility] and? [facility]. ?The patient is currently on room air. (3) Hyperlipidemia: ?Code(s): E78.5 - Hyperlipidemia, unspecified ?Status:?Acute ?Assessment and Plan: Continue with rosuvastatin (4) Hypertension: ?Code(s): I10 - Essential (primary) hypertension ?Status:?Acute ?Assessment and Plan: Continue with irbesartan Subjective Date/time seen: 04/20/23 12:31 Interval history: I saw and examined patient today,no new issue events over the night, afebrile, hemodynamically stable, patient still has weakness of right thumb, the weakness started about a week ago. Patient denies headache, vision change, new focal weakness nausea vomiting Exam Narrative: GENERAL: Pleasant, in no acute distress. Well-nourished. - EYES: EOMI. Anicteric. - HENT: Moist mucous membranes. - LUNGS: Clear to auscultation bilaterally, no wheezing, rhonchi, or rales. - CARDIOVASCULAR: Regular rate and rhythm. No murmur. No JVD. - ABDOMEN: Soft, non-tender and non-distended. No palpable masses. - EXTREMITIES: No edema. Peripheral pulses 2+. Non-tender. - NEUROLOGIC: No focal neurological deficits. CN II-XII grossly intact. - PSYCHIATRIC: Awake, Alert and oriented x 3. Appropriate mood and affect. Weakness of right thumb - SKIN: No rashes or lesions. Warm. - LYMPH: No cervical lymphadenopathy. Objective Data Vital Signs Vital Signs: Vital Signs - 24 hr 04/19/23 14:00 04/19/23 21:39 04/20/23 06:00 Temperature 98.3 F 97.3 F L 97.5 F L Pulse Rate 76 70 89 Respiratory Rate 18 18 20 Blood Pressure 157/75 H 155/73 H 162/73 H Pulse Oximetry 100 96 98 Intake/Output Intake/Output: Intake & Output 04/17/23 04/18/23 04/19/23 04/20/23 23:59 23:59 23:59 23:59 Intake Total 750 1400 1020 Balance 750 1400 1020 Meds/Results Medications: Active Medications Generic Name Dose Route Start Last Admin Trade Name Freq PRN Reason Stop Dose Admin Acetaminophen 650 mg 04/18/23 16:48 Acet
[2023-04-20 14:00] VITALS: BP 158/67; PULSE 69; RESP 20; TEMP 37.4; O2SAT 100
[2023-04-20 20:50] VITALS: BP 156/74; PULSE 74; RESP 17; TEMP 36.6; O2SAT 100
[2023-04-21 05:15] VITALS: BP 151/69; PULSE 69; RESP 17; TEMP 36.6; O2SAT 97
[2023-04-21] MEDS: methylPREDNISolone SOD SUCC 125 MG VIAL 60 MG IV PUSH ×3 (05:19→17:24)
[2023-04-21] MEDS: ROSUVASTATIN 10 MG TABLET BY MOUTH (08:13)
[2023-04-21] MEDS: IRBESARTAN 75 MG TABLET PO (08:13)
[2023-04-21] MEDS: levETIRAcetam 500 MG TABLET PO ×2 (08:13→20:26)
[2023-04-21 08:59] VITALS: O2SAT 97
--- NOTE | 2023-04-21 13:03 | PM.IMPN ---
Progress Note: A&P Assessment and Plan (1) Mass of brain: Code(s): G93.89 - Other specified disorders of brain Status: Acute (2) Pulmonary neoplasm: Code(s): D49.1 - Neoplasm of unspecified behavior of respiratory system Status: Acute (3) Hyperlipidemia: Code(s): E78.5 - Hyperlipidemia, unspecified Status: Acute (4) Hypertension: Code(s): I10 - Essential (primary) hypertension Status: Acute (5) Left-sided weakness: Code(s): R53.1 - Weakness Status: Acute Plan (1) Mass of brain: ?Code(s): G93.89 - Other specified disorders of brain ?Status:?Acute ?Assessment and Plan: The patient is awaiting a bed at [facility].? She is only admitted here for observation until she receives a bed at [facility]. CT of the head Two posterior right frontal lobe masses measuring up to 2.1 cm, with considerable surrounding vasogenic edema, moderate local mass effect, and mild subfalcine herniation. Radiologist considers these lesions most likely represent metastatic disease, noting that infection, demyelinating disease, and other entities could appear similarly.? Radiologist recommends to recommend MRI of the brain without and with contrast for further evaluation. The patient was started on Keppra and Solu-Medrol.? Patient is a waiting list to be transferred to [facility] and [facility] Now patient has no new neuro deficit consult neurologist and neurosurgeon for evaluation and treatment change to keppra 500 mg q12h po (2) Pulmonary neoplasm: ?Code(s): D49.1 - Neoplasm of unspecified behavior of respiratory system ?Status:?Acute ?Assessment and Plan: CT of the chest. Multiple lung nodules as described above, consistent with primary bronchogenic carcinoma with satellite lesions or metastatic disease. CT-guided biopsy is recommended. 2. Right hilar lymphadenopathy, likely metastatic disease. Patient awaiting transfer to [facility] and? [facility]. (3) Hyperlipidemia: ?Code(s): E78.5 - Hyperlipidemia, unspecified ?Status:?Acute ?Assessment and Plan: Continue with rosuvastatin (4) Hypertension: ?Code(s): I10 - Essential (primary) hypertension ?Status:?Acute ?Assessment and Plan: Continue with tanya Subjective Date/time seen: 04/21/23 13:03 Interval history: Pt wants to speak neurology again. CT head shows - Two posterior right frontal lobe masses measuring up to 2.1 cm, with considerable surrounding vasogenic edema, moderate local mass effect, and mild subfalcine herniation. These lesions most likely represent metastatic disease, noting that infection, demyelinating disease, and other entities could appear similarly. Requesting further images. Ongoing left sided weakness and numbness Awaiting transfer to [facility] hospital Exam Narrative: GENERAL: Pleasant, in no acute distress. Well-nourished. - EYES: EOMI. Anicteric. - HENT: Moist mucous membranes. - LUNGS: Clear to auscultation bilaterally, no wheezing, rhonchi, or rales. - CARDIOVASCULAR: Regular rate and rhythm. No murmur. No JVD. - ABDOMEN: Soft, non-tender and non-distended. No palpable masses. - EXTREMITIES: No edema. Peripheral pulses 2+. Non-tender. - NEUROLOGIC: No focal neurological deficits. CN II-XII grossly intact. - PSYCHIATRIC: Awake, Alert and oriented x 3. Appropriate mood and affect. Weakness of right thumb - SKIN: No rashes or lesions. Warm. - LYMPH: No cervical lymphadenopathy. Objective Data Vital Signs Vital Signs: Vital Signs - 24 hr 04/20/23 14:00 04/20/23 20:50 04/21/23 05:15 Temperature 37.4 C 36.6 C 36.6 C Pulse Rate 69 74 69 Respiratory Rate 20 17 17 Blood Pressure 158/67 H 156/74 H 151/69 H Pulse Oximetry 100 100 97 Oxygen Delivery 04/21/23 08:59 04/21/23 08:00 Temperature Pulse Rate Respiratory Rate Blood Pressure Pulse Oximetry 97 Oxygen Delivery Room Air Room Air Intake/
[2023-04-21 14:00] VITALS: BP 158/70; PULSE 75; RESP 17; TEMP 36.7; O2SAT 100
[2023-04-21 19:40] VITALS: BP 168/63; PULSE 71; RESP 20; TEMP 36.6; O2SAT 97
[2023-04-22] MEDS: methylPREDNISolone SOD SUCC 125 MG VIAL 60 MG IV PUSH ×5 (01:04→23:38)
[2023-04-22 04:43] VITALS: BP 159/78; PULSE 72; RESP 20; TEMP 36.7; O2SAT 96
[2023-04-22 09:12] VITALS: O2SAT 96
[2023-04-22] MEDS: levETIRAcetam 500 MG TABLET PO ×2 (09:35→20:52)
[2023-04-22] MEDS: IRBESARTAN 75 MG TABLET PO (09:35)
[2023-04-22] MEDS: ROSUVASTATIN 10 MG TABLET BY MOUTH (09:35)
--- NOTE | 2023-04-22 12:47 | PM.IMPN ---
Progress Note: A&P Assessment and Plan (1) Mass of brain: Code(s): G93.89 - Other specified disorders of brain Status: Acute (2) Pulmonary neoplasm: Code(s): D49.1 - Neoplasm of unspecified behavior of respiratory system Status: Acute (3) Hyperlipidemia: Code(s): E78.5 - Hyperlipidemia, unspecified Status: Acute (4) Hypertension: Code(s): I10 - Essential (primary) hypertension Status: Acute (5) Left-sided weakness: Code(s): R53.1 - Weakness Status: Acute Plan (1) Mass of brain: ?Code(s): G93.89 - Other specified disorders of brain ?Status:?Acute ?Assessment and Plan: The patient is awaiting a bed at [facility].? She is only admitted here for observation until she receives a bed at [facility]. CT of the head Two posterior right frontal lobe masses measuring up to 2.1 cm, with considerable surrounding vasogenic edema, moderate local mass effect, and mild subfalcine herniation. Radiologist considers these lesions most likely represent metastatic disease, noting that infection, demyelinating disease, and other entities could appear similarly.? Radiologist recommends to recommend MRI of the brain without and with contrast for further evaluation. The patient was started on Keppra and Solu-Medrol.? Patient is a waiting list to be transferred to [facility] and [facility] Now patient has no new neuro deficit consult neurologist and neurosurgeon for evaluation and treatment change to keppra 500 mg q12h po (2) Pulmonary neoplasm: ?Code(s): D49.1 - Neoplasm of unspecified behavior of respiratory system ?Status:?Acute ?Assessment and Plan: CT of the chest. Multiple lung nodules as described above, consistent with primary bronchogenic carcinoma with satellite lesions or metastatic disease. CT-guided biopsy is recommended. 2. Right hilar lymphadenopathy, likely metastatic disease. Patient awaiting transfer to [facility] and? [facility]. (3) Hyperlipidemia: ?Code(s): E78.5 - Hyperlipidemia, unspecified ?Status:?Acute ?Assessment and Plan: Continue with rosuvastatin (4) Hypertension: ?Code(s): I10 - Essential (primary) hypertension ?Status:?Acute ?Assessment and Plan: Continue with estradaleelinda Subjective Date/time seen: 04/22/23 12:47 Interval history: CT head shows - Two posterior right frontal lobe masses measuring up to 2.1 cm, with considerable surrounding vasogenic edema, moderate local mass effect, and mild subfalcine herniation. These lesions most likely represent metastatic disease, noting that infection, demyelinating disease, and other entities could appear similarly. Advised to have further imaging at [facility] CT head MRI head later at [facility] Ongoing left sided weakness and numbness improving slowly Awaiting transfer to [facility] hospital Review of Systems Review of Systems: Mild numbness and weakness in left side Exam Narrative: GENERAL: Pleasant, in no acute distress. Well-nourished. - EYES: EOMI. Anicteric. - HENT: Moist mucous membranes. - LUNGS: Clear to auscultation bilaterally, no wheezing, rhonchi, or rales. - CARDIOVASCULAR: Regular rate and rhythm. No murmur. No JVD. - ABDOMEN: Soft, non-tender and non-distended. No palpable masses. - EXTREMITIES: No edema. Peripheral pulses 2+. Non-tender. - NEUROLOGIC: No focal neurological deficits. CN II-XII grossly intact. - PSYCHIATRIC: Awake, Alert and oriented x 3. Appropriate mood and affect. Weakness of right thumb - SKIN: No rashes or lesions. Warm. - LYMPH: No cervical lymphadenopathy. Objective Data Vital Signs Vital Signs: Vital Signs - 24 hr 04/21/23 14:00 04/21/23 19:40 04/21/23 20:00 Temperature 36.7 C 36.6 C Pulse Rate 75 71 Respiratory Rate 17 20 Blood Pressure 158/70 H 168/63 H Pulse Oximetry 100 97 Oxygen Delivery Room Air 04/22/23 04:43 04/22/23 09:12 04/22/23 08:00 Temperature 36.
[2023-04-22 14:00] VITALS: BP 146/67; PULSE 70; RESP 16; TEMP 36.7; O2SAT 99
--- NOTE | 2023-04-22 19:12 | PDONCCN ---
HPI - Date of Consult Date/Time: 04/22/23 19:13 Requesting Physician: Lyssa Sheth MD Primary Care Provider: Olga Oliveros, HUMAN RESOURCES REPRESENTATIVE - Consult Narrative Reason for consult: Likely metastatic lung cancer Narrative: Sherley Ridley is a 63 year old female with history of smoking for more than 30 years duration along with history of hyperlipidemia and hypertension came into the hospital with left hand weakness and lost of director medical science. She denies any headaches and seizure. She denies any weight loss. Denies any cough and hemoptysis. CT chest showed multiple lung nodules consistent with primary bronchogenic carcinoma with satellite lesions. There was right hilar lymphadenopathy. MRI brain showed 2 posterior right frontal masses up to 2.1 cm with vasogenic edema. Patient was started on Keppra as well as on steroid with some improvement in the left hand director medical science and strength. Review of Systems - Review of Systems All systems reviewed & are unremarkable except as noted in HPI and bel - Neurologic Reports system reviewed and no additional complaints, except as documented, Reports hearing normal, Denies syncope, Denies loss of vision PMFSH Medical History: Medical History (Last Reviewed 04/19/23 @ 14:27 by Lizette Mendiola MD) Hyperlipidemia Hypertension UTI (urinary tract infection) Surgical History: Surgical History (Last Reviewed 04/19/23 @ 14:27 by Lizette Mendiola MD) H/O tubal ligation History of hysterectomy History of varicose vein stripping 5 weeks ago to right lower leg Family History: Family History (Last Reviewed 04/19/23 @ 14:27 by Lizette Mendiola MD) Father Heart disease Hypertension Cancer Mother Hypertension Diabetes mellitus - Social History Social History: Social History (Last Reviewed 04/19/23 @ 14:27 by Lizette Mendiola MD) Gender Identity: Gender identity (if verbalized by the patient): Female Alcohol Use: Alcohol intake: current Alcohol use details: social Substance Use: Substance use: never Others: Spiritual care concerns: No Living Arrangements: Living arrangements: with family Smoking Status: Smoking status: Current some day smoker Comments: Additional smoking assessment comments: Quit 1 year ago in December Social Determinants of Health: Has the Lack of Transportation Kept You From Medical Appointments or From Getting Medications?: No Within the Past 12 Months, Were You Worried Whether Your Food Would Run Out Before You Got Money to Buy More?: Never True What is Your Housing Situation Today?: I Have Housing Are You Worried That in the Next 2 Months, You May Not Have Your Own Housing to Live In?: No Do You Have Trouble Paying Your Heating Or Electricity Bill?: No Do You Have Trouble Paying For Medicines?: No Are You Currently Unemployed and Looking for Work?: No Highest Level of Education Completed: Don't Know Do You Have Trouble With Childcare or the Care of a Family Member?: No Exam - Vital Signs Vital Signs - 24 hr 04/21/23 19:40 04/21/23 20:00 04/22/23 04:43 Temperature 36.6 C 36.7 C Pulse Rate 71 72 Respiratory Rate 20 20 Blood Pressure 168/63 H 159/78 H Pulse Oximetry 97 96 Oxygen Delivery Room Air 04/22/23 09:12 04/22/23 08:00 04/22/23 14:00 Temperature 36.7 C Pulse Rate 70 Respiratory Rate 16 Blood Pressure 146/67 H Pulse Oximetry 96 99 Oxygen Delivery Room Air Room Air - Exam HEENT: EOMI, PERRLA, mucous membranes moist and pink Neck: supple. No: JVD Lungs: clear to auscultation, normal air movement Heart: no murmurs, gallops, or rubs, regular rhythm, regular rate Abdomen: abdomen soft, non-distended, normal bowel sounds Extremities: normal pulses Integumentary: no abnormalities (Weakness of the left hand) Neurological: normal speech Psychological: mental status NL, mood NL - Lab Results Laboratory Last Values WBC 9.9 K/mm3 (4.5-10.
[2023-04-22 20:53] VITALS: BP 170/71; PULSE 68; RESP 18; TEMP 36.9; O2SAT 96
[2023-04-23] MEDS: methylPREDNISolone SOD SUCC 125 MG VIAL 60 MG IV PUSH ×3 (05:26→17:21)
[2023-04-23 05:31] VITALS: BP 149/68; PULSE 65; RESP 17; TEMP 36.7; O2SAT 100
[2023-04-23] MEDS: levETIRAcetam 500 MG TABLET PO ×2 (08:44→21:07)
[2023-04-23] MEDS: ROSUVASTATIN 10 MG TABLET BY MOUTH (08:44)
[2023-04-23] MEDS: IRBESARTAN 75 MG TABLET PO (08:44)
--- NOTE | 2023-04-23 11:48 | PM.IMPN ---
Progress Note: A&P Assessment and Plan (1) Mass of brain: Code(s): G93.89 - Other specified disorders of brain Status: Acute (2) Pulmonary neoplasm: Code(s): D49.1 - Neoplasm of unspecified behavior of respiratory system Status: Acute (3) Hyperlipidemia: Code(s): E78.5 - Hyperlipidemia, unspecified Status: Acute (4) Hypertension: Code(s): I10 - Essential (primary) hypertension Status: Acute (5) Left-sided weakness: Code(s): R53.1 - Weakness Status: Acute Plan (1) Mass of brain: ?Code(s): G93.89 - Other specified disorders of brain ?Status:?Acute ?Assessment and Plan: The patient is awaiting a bed at [facility].? CT of the head Two posterior right frontal lobe masses measuring up to 2.1 cm, with considerable surrounding vasogenic edema, moderate local mass effect, and mild subfalcine herniation. Radiologist considers these lesions most likely represent metastatic disease, noting that infection, demyelinating disease, and other entities could appear similarly.? Radiologist recommends to recommend MRI of the brain without and with contrast for further evaluation. The patient was started on Keppra and Solu-Medrol.? Patient is a waiting list to be transferred to [facility] and [facility] consult neurologist and neurosurgeon for evaluation and treatment change to keppra 500 mg q12h po As per neurology DR Mendiola pt needs Pt to have MRI brain with and without contrast today as per neurology Pt still awaiting transfer Pt needs these necessary tests before transfer (2) Pulmonary neoplasm: ?Code(s): D49.1 - Neoplasm of unspecified behavior of respiratory system ?Status:?Acute ?Assessment and Plan: CT of the chest. Multiple lung nodules as described above, consistent with primary bronchogenic carcinoma with satellite lesions or metastatic disease. CT-guided biopsy is recommended. Pt to have CT lung biopsy today ordered by oncology. 2. Right hilar lymphadenopathy, likely metastatic disease. Patient awaiting transfer to [facility] and? [facility]. (3) Hyperlipidemia: ?Code(s): E78.5 - Hyperlipidemia, unspecified ?Status:?Acute ?Assessment and Plan: Continue with rosuvastatin (4) Hypertension: ?Code(s): I10 - Essential (primary) hypertension ?Status:?Acute ?Assessment and Plan: Continue with irbesartan Subjective Date/time seen: 04/23/23 11:48 Interval history: CT head shows - Two posterior right frontal lobe masses measuring up to 2.1 cm, with considerable surrounding vasogenic edema, moderate local mass effect, and mild subfalcine herniation. These lesions most likely represent metastatic disease, noting that infection, demyelinating disease, and other entities could appear similarly. Advised to have further imaging at [facility] CT head MRI head later at [facility] Ongoing left sided weakness and numbness improving slowly Awaiting transfer to [facility] hospital recommended by neurology to go to [facility] neurosurgery services Pt to have CT lung biopsy today ordered by oncology Pt to have MRI brain with and without contrast today as per neurology Pt still awaiting transfer pt needs these necessary tests before transfer Neurology recommends transfer after tests Review of Systems Review of Systems: Mild numbness and weakness in left side All systems reviewed & are unremarkable except as noted in HPI and below Exam Narrative: GENERAL: Pleasant, in no acute distress. Well-nourished. - EYES: EOMI. Anicteric. - HENT: Moist mucous membranes. - LUNGS: Clear to auscultation bilaterally, no wheezing, rhonchi, or rales. - CARDIOVASCULAR: Regular rate and rhythm. No murmur. No JVD. - ABDOMEN: Soft, non-tender and non-distended. No palpable masses. - EXTREMITIES: No edema. Peripheral pulses 2+. Non-tender. - NEUROLOGIC: No focal neurological deficits. CN II-XII grossly intact. - PSYCHIATRIC: Awake, Alert
--- NOTE | 2023-04-23 12:13 | WPDNEUROPN ---
Progress Note: A&P Assessment and Plan (1) Left-sided weakness: Code(s): R53.1 - Weakness Status: Acute (2) Mass of brain: Code(s): G93.89 - Other specified disorders of brain Status: Acute (3) Pulmonary neoplasm: Code(s): D49.1 - Neoplasm of unspecified behavior of respiratory system Status: Acute Plan Ms. Ridley is a 63 year old female presenting due to left sided weakness. She was found to have R frontal masses with surrounding vasogenic edema concerning for metastatic disease originating from the lungs. Patient had initially been accepted by [facility] at [facility] waiting [facility] bed, but per Oncology, she is okay to be discharged. Patient denies any headaches. She has not had any seizures. - Agree with prophylactic Keppra 500mg BID - Decadron as recommended by Oncology Subjective Date/time seen: 04/23/23 12:13 Interval history: Sherley Ridley is a 63 year old female with a history of hypertension, hyperlipidemia presenting for evaluation of left sided weakness. Patient presented after noting weakness in the left hand, dragging the left foot, left facial droop, and speech changes. She presented to [place] ED where CT head revealed two posterior right frontal lobe masses measuring up to 2.1 cm with considerable surrounding vasogenic edema, moderate local mass effect, and mild subfalcine herniation, suggestive of metastatic disease. CT chest showed multiple nodules, concerning for primary bronchogenic carcinoma. Our Neurosurgery providers were consulted from the ER and they recommended transfer to [facility] or [facility]. Patient has been accepted at [facility] but is waiting on a bed. Per recommendation of the accepting physician, she was started on Keppra 500mg BID. MRI brain with and without contrast was recommended as well. She has been started on scheduled solumedrol. Patient denies any headache, vision changes, seizures. She continues to have weakness in the left upper extremity but feels that her speech is back to baseline. Interval history: Per patient's RN, she called [facility] and [facility] and it appears that they do not have record of the patient awaiting a bed there. It is also unclear who the accepting provider was when the ER called the patient on presentation for transfer. Dr. Chong (oncology) has recommended lung biopsy and have patient follow-up with radiation/oncology as outpatient. Per Dr. Castillo, patient is ok to be discharged from his standpoint, and he feels that she does not need to remain admitted given that she is 'asymptomatic'. He has recommended Decadron 4mg TID for edema. Review of Systems Constitutional: Constitutional: Denies chills and Denies fever(s) Eyes: Eyes: Denies diplopia and Denies loss of vision ENT: Denies dizziness, Denies hearing loss and Denies tinnitus Cardiovascular: Cardiovascular: Denies chest pain, Denies syncope and Denies dyspnea Respiratory: Respiratory: Denies cough, Denies dyspnea and Denies wheezing Gastrointestinal: Gastrointestinal: Denies abdominal pain, Denies change in bowel habits and Denies vomiting Genitourinary: Genitourinary: Denies urinary incontinence Musculoskeletal: Musculoskeletal: Denies arthralgias and Denies joint swelling Integumentary/Breasts: Skin/Breast: Denies new lesions and Denies rash Neurologic: Reports as per HPI, Denies dizziness, Denies syncope and Denies loss of vision Psychiatric: Psychiatric: Denies anxiety and Denies depression Endocrine: Endocrine: Denies cold intolerance and Denies heat intolerance Hematologic/Lymphatic: Hematologic/Lymphatic: Denies easy bleeding and Denies easy bruising Allergic/Immunologic: Allergic/Immunologic: Denies no additional allergic/immunologic complaints and Denies wheezing Exam Const: General: comfortable and no acute distress HENMT: Mouth: Yes moist mucous membranes Eyes: Pupils: Equal, round and reactive pupils present EOM: EOMs intact bilaterally Resp: Effort & Ins
--- NOTE | 2023-04-23 12:22 | PM.IMPN ---
Progress Note: A&P Assessment and Plan (1) Mass of brain: Code(s): G93.89 - Other specified disorders of brain Status: Acute (2) Pulmonary neoplasm: Code(s): D49.1 - Neoplasm of unspecified behavior of respiratory system Status: Acute (3) Hyperlipidemia: Code(s): E78.5 - Hyperlipidemia, unspecified Status: Acute (4) Hypertension: Code(s): I10 - Essential (primary) hypertension Status: Acute (5) Left-sided weakness: Code(s): R53.1 - Weakness Status: Acute Plan (1) Mass of brain: ?Code(s): G93.89 - Other specified disorders of brain ?Status:?Acute ?Assessment and Plan: The patient is awaiting a bed at [facility].? CT of the head Two posterior right frontal lobe masses measuring up to 2.1 cm, with considerable surrounding vasogenic edema, moderate local mass effect, and mild subfalcine herniation. Radiologist considers these lesions most likely represent metastatic disease, noting that infection, demyelinating disease, and other entities could appear similarly.? Radiologist recommends to recommend MRI of the brain without and with contrast for further evaluation. Now pt ok to DC home with follow up onocology and radiation oncology appointments after necessary tests Pt to have CT lung biopsy today ordered by oncology Pt to have MRI brain with and without contrast today as per neurology Pt to follow up with oncology and radiation oncology services Pt to dc on Decadron po 4 mg tid and Keppra 500mg po bid As per neurology DR Mendiola pt needs Pt to have MRI brain with and without contrast today as per neurology prior to DC ordered today (2) Pulmonary neoplasm: ?Code(s): D49.1 - Neoplasm of unspecified behavior of respiratory system ?Status:?Acute ?Assessment and Plan: CT of the chest. Multiple lung nodules as described above, consistent with primary bronchogenic carcinoma with satellite lesions or metastatic disease. CT-guided biopsy is recommended. Pt to have CT lung biopsy today ordered by oncology. Pt to follow up with oncology and radiation oncology services Pt to dc on Decadron po 4 mg tid and Keppra 500mg po bid 2. Right hilar lymphadenopathy, likely metastatic disease. CT of the chest. Multiple lung nodules as described above, consistent with primary bronchogenic carcinoma with satellite lesions or metastatic disease. CT-guided biopsy is recommended. Pt to have CT lung biopsy today ordered by oncology. Pt to follow up with oncology and radiation oncology services Pt to dc on Decadron po 4 mg tid and Keppra 500mg po bid (3) Hyperlipidemia: ?Code(s): E78.5 - Hyperlipidemia, unspecified ?Status:?Acute ?Assessment and Plan: Continue with rosuvastatin (4) Hypertension: ?Code(s): I10 - Essential (primary) hypertension ?Status:?Acute ?Assessment and Plan: Continue with irbesartan Subjective Date/time seen: 04/23/23 12:22 Interval history: 04/23/2023 CORRECTED NOTE AFTER DISCUSSION WITH ONCOLOGY AND NEUROLOGY Inital CT head shows - Two posterior right frontal lobe masses measuring up to 2.1 cm, with considerable surrounding vasogenic edema, moderate local mass effect, and mild subfalcine herniation. These lesions most likely represent metastatic disease, noting that infection, demyelinating disease, and other entities could appear similarly. Ongoing left sided weakness and numbness improving slowly Initially pt recommended by neurology to go to [facility] services Now pt ok to DC home with follow up onocology and radiation oncology appointments after necessary tests Pt to have CT lung biopsy today ordered by oncology Pt to have MRI brain with and without contrast today as per neurology Pt to follow up with oncology and radiation oncology services Pt to dc on Decadron po 4 mg tid and Keppra 500mg po bid Review of Systems Review of Systems: Mild left
[2023-04-23] MEDS: LORazepam INJ (*CRX) 2 MG/ML VIAL 0.5 MG IV PUSH (13:17)
[2023-04-23 20:47] VITALS: BP 151/65; PULSE 74; RESP 18; TEMP 36.4; O2SAT 100
[2023-04-24] MEDS: methylPREDNISolone SOD SUCC 125 MG VIAL 60 MG IV PUSH ×2 (00:02→05:53)
[2023-04-24 05:02] VITALS: BP 160/70; PULSE 64; RESP 17; TEMP 36.7; O2SAT 94
[2023-04-24] MEDS: LORazepam INJ (*CRX) 2 MG/ML VIAL 0.5 MG IV PUSH (07:10)
[2023-04-24] MEDS: IRBESARTAN 75 MG TABLET PO (07:21)
[2023-04-24] MEDS: ROSUVASTATIN 10 MG TABLET BY MOUTH (07:21)
--- NOTE | 2023-04-24 07:25 | PC.NURSE ---
REPORT CALLED TO LIZABETH ALMONTE AT [phone]
--- NOTE | 2023-04-24 07:25 | PC.NURSE ---
PT REQUESTED ATIVAN, BP AND CHOLESTEROL MEDS BEFORE TRANSFER
--- NOTE | 2023-05-06 17:31 | PM.TDS ---
Transfer Discharge Sum: Prov Provider Date of admission: 04/18/23 16:48 Primary care physician: Olga Oliveros, [employer] Admitting clinician: Lyssa Sheth MD Consults: 04/19/23 Consult to Physician Routine Comment: Maury said needs Neuro SX, Spoke to 04/19/23 1029 Consulting Provider: Lizette Mendiola yardage caller/MD group to consult: On-call neurologist Reason for consultation: Brain cancer with edema, moderate local mass effect, mild herniation Has provider been notified: Yes 04/22/23 Consult to Physician Routine Comment: Spoke w/ 1315 04/22 (, [place]) Consulting Provider: Fidel Chong Reason for consultation: suspected mets Has provider been notified: Yes Consult to Physician Routine Comment: Spoke w/office 04/23 Consulting Provider: Rebeka Espinoza yardage caller/MD group to consult: Consult Radiation Oncology for brain metastasis. Reason for consultation: Brain metastasis Has provider been notified: Yes DS: Admitting Diagnosis Discharge Date 04/24/23 Admitting Diagnosis Left hand cramping and rash to bilateral arms. DS: Discharge Diagnosis Discharge Diagnosis (1) Left-sided weakness: Code(s): R53.1 - Weakness Status: Acute (2) Hypertension: Code(s): I10 - Essential (primary) hypertension Status: Acute (3) Hyperlipidemia: Code(s): E78.5 - Hyperlipidemia, unspecified Status: Acute (4) Mass of brain: Code(s): G93.89 - Other specified disorders of brain Status: Acute (5) Pulmonary neoplasm: Code(s): D49.1 - Neoplasm of unspecified behavior of respiratory system Status: Acute Plan (1) Mass of brain: ?Code(s): G93.89 - Other specified disorders of brain ?Status:?Acute ?Assessment and Plan: The patient is awaiting a bed at [facility] CT of the head Two posterior right frontal lobe masses measuring up to 2.1 cm, with considerable surrounding vasogenic edema, moderate local mass effect, and mild subfalcine herniation. Radiologist considers these lesions most likely represent metastatic disease, noting that infection, demyelinating disease, and other entities could appear similarly.? Radiologist recommends to recommend MRI of the brain without and with contrast for further evaluation. Now pt ok to DC home with follow up onocology and radiation oncology appointments after necessary tests Pt to have CT lung biopsy today ordered by oncology Pt to have MRI brain with and without contrast today as per neurology Pt to follow up with oncology and radiation oncology services Pt to dc on Decadron po 4 mg tid and Keppra 500mg po bid As per neurology DR Mendiola pt needs Pt to have MRI brain with and without contrast today as per neurology prior to DC ordered today (2) Pulmonary neoplasm: ?Code(s): D49.1 - Neoplasm of unspecified behavior of respiratory system ?Status:?Acute ?Assessment and Plan: CT of the chest. Multiple lung nodules as described above, consistent with primary bronchogenic carcinoma with satellite lesions or metastatic disease. CT-guided biopsy is recommended. Pt to have CT lung biopsy today ordered by oncology. Pt to follow up with oncology and radiation oncology services Pt to dc on Decadron po 4 mg tid and Keppra 500mg po bid 2. Right hilar lymphadenopathy, likely metastatic disease. CT of the chest. Multiple lung nodules as described above, consistent with primary bronchogenic carcinoma with satellite lesions or metastatic disease. CT-guided biopsy is recommended. Pt to have CT lung biopsy today ordered by oncology. Pt to follow up with oncology and radiation oncology services Pt to dc on Decadron po 4 mg tid and Keppra 500mg po bid (3) Hyperlipidemia: ?Code(s): E78.5 - Hyperlipidemia, unspecified ?Status:?Acute ?Assessment and Plan: Continue with rosuvastatin (4) Hypertension: ?Code(s): I10 - Essential (primary) hypertension ?Status:?Ac
== END 2023-04-24 07:24 | disposition short-term general hospital (02) ==
LOC: ANHED 04-18 17:03 → ANH2MED 04-18 17:54
PROVIDERS: Emergency Medicine; Nurse Practitioner; Admitting Provider Hospitalist; Emergency Provider Emergency Medicine; PCP Nurse Practitioner Family; Visit Provider Hospitalist
DX: G93.89 Other specified disorders of brain (principal); C34.91 Malignant neoplasm of unspecified part of right bronchus or lung; E78.5 Hyperlipidemia, unspecified; I10 Essential (primary) hypertension; R59.1 Generalized enlarged lymph nodes; R53.1 Weakness; F10.90 Alcohol use, unspecified, uncomplicated; F17.210 Nicotine dependence, cigarettes, uncomplicated; Z79.899 Other long term (current) drug therapy; Z82.49 Family history of ischemic heart disease and other diseases of the circulatory system
CPT/HCPCS: 32408; 36415; 70450; 70553; 71045; 71260; 72125; 80053; 81001; 83735; 84443; 85025; 85610; 85652; 85730; 86140; 87086; 87088; 88305; 88342; 93005; 96365; 96374; 96375; 96376; 99285; A9270; A9577; G0378; J1953; J2060; J2930; Q9967